=== PATIENT | male | born 1955 | race Caucasian/White ===

== ENCOUNTER 2017-10-27 14:41 | Day surgery (SDC) | payer OTHER ==
[2017-10-27] MEDS ORDERED: MIDAZOLAM 1 MG/ML 2 ML INJ ×2 (16:19)
[2017-10-27] MEDS ORDERED: FENTAnyl 50 MCG/ML VIAL (16:19)
== END 2017-10-27 16:53 | disposition home or self-care (01) ==
LOC: GIL 14:41
DX: Z12.11 Encounter for screening for malignant neoplasm of colon (principal); K64.8 Other hemorrhoids
CPT/HCPCS: 45378